=== PATIENT | female | born 1990 | race Caucasian/White ===

== ENCOUNTER 2023-09-13 21:52 | Emergency (ER) | payer BC ==
[~2023-09-13] VITALS: Ht 167.6 cm; Wt 74.8 kg
[2023-09-13 22:26] VITALS: TEMP 98.2; O2SAT 100
[2023-09-14] MEDS ORDERED: ONDANSETRON 4MG ODT PO STA
[2023-09-14] MEDS ORDERED: METOCLOPRAMIDE HCL 10MG TABLET PO ONE (00:15)
[2023-09-14] MEDS ORDERED: DIPHENHYDRAMINE 25MG CAPSULE PO ONE (00:15)
[2023-09-14 02:36] VITALS: BP 133/80; PULSE 61; RESP 16
== END 2023-09-14 02:42 | disposition home or self-care (01) ==
LOC: ER 21:52
DX: G43.909 Migraine, unspecified, not intractable, without status migrainosus (principal)
CPT/HCPCS: 99283; Q0163; J8597